=== PATIENT | female | born 1980 | race Caucasian/White ===

== ENCOUNTER 2017-02-09 19:55 | Emergency (ER) | payer MEDICARE, MEDICAID ==
[2017-02-09 20:34] VITALS: BP 127/75
[2017-02-09] MEDS ORDERED: Albuterol 2.5 MG/3 ML NEB.SOL* (0.083%) INH ONE (20:45)
[2017-02-09] MEDS ORDERED: Ipratropium 0.5MG/2.5ML NEB* 0.5 MG/2.5 ML NEB.SOLN INH ONE (20:45)
[2017-02-09] MEDS ORDERED: methylPREDNISolone 125 MG* 2 ML VIAL IM ONE (21:22)
--- NOTE | 2017-02-09 21:23 | UC ---
Respiratory Complaint HPI - History of Current Complaint Chief Complaint: UCRespiratory Stated Complaint: UPPER RESPIRATORY,COUGH Time Seen by Provider: 02/09/17 20:39 Hx Obtained From: Patient Hx Last Menstrual Period: 01/18/17 ?: No Onset/Duration: Gradual Onset, Lasting Days - 10, Worse Since - last several days with coughing fits. Timing: Constant Severity Initially: Mild Severity Currently: Severe Character: Cough: Nonproductive Aggravating Factors: Deep Breaths, Recumbent Position Associated Signs And Symptoms: Positive: Pleuritic Chest Pain - and right sided upper abdominal pain with coughing., Wheezing Related History: Seasonal Allergies - Risk Factors Pulmonary Embolism Risk Factors: Smoking Cardiac Risk Factors: Smoking - Allergies/Home Medications Allergies/Adverse Reactions: Allergies Allergy/AdvReac Type Severity Reaction Status Date / Time No Known Allergies Allergy Verified 02/09/17 20:24 Home Medications: Home Medications Cinnamon [Cinnamon Extract] 1,000 mg PO DAILY 02/09/17 [History Confirmed ] Exenatide(NF) [Byetta (NF)] 5 mcg SC BID 02/09/17 [History Confirmed 02/09/17] Levonorgestrel (Iud) [Mirena IUD] 20 mcg IU SEE INSTRUCTIONS 02/09/17 [History Confirmed 02/09/17] guaiFENesin ER TAB [Mucinex*] 600 mg PO BID PRN 02/09/17 [History Confirmed 09/27] PMH/Surg Hx/FS Hx/Imm Hx Endocrine History: Diabetes Cardiovascular History: Hypertension - Surgical History Surgical History: Yes Surgery Procedure, Year, and Place: C SECTION, TONSILLECTOMY, LEEP PROCEDUE, GALL BLADDER REMOVAL, hysteroscopy w/ bx - Family History Known Family History: Positive: Hypertension, Diabetes - Social History Occupation: Disabled Lives: With Family Alcohol Use: None Substance Use Type: None Smoking Status (MU): Heavy Every Day Tobacco Smoker Type: Cigarettes Amount Used/How Often: 1 PPD Length of Time of Smoking/Using Tobacco: started at age 14 Have You Smoked in the Last Year: Yes Household Exposure Type: Cigarettes Cessation Counseling: Patient Advised to Stop Review of Systems Respiratory: Shortness Of Breath, Cough Musculoskeletal: Myalgia - abdominal muscle wall pain with coughing, All Other Systems Reviewed And Are Negative: Yes Physical Exam Triage Information Reviewed: Yes Appearance: No Pain Distress, Ill-Appearing, Obese - morbidly Vital Signs: Initial Vital Signs Temp 99.0 F 02/09/17 20:27 Pulse 102 02/09/17 20:27 Resp 20 02/09/17 20:27 BP 127/75 02/09/17 20:27 Pulse Ox 98 02/09/17 20:27 Vital Signs Reviewed: Yes Eyes: Positive: Conjunctiva Clear ENT: Positive: Pharyngeal erythema - on the uvula, TMs normal Neck exam: Normal Respiratory: Positive: Lungs clear, Wheezing - just with coughing. Cardiovascular: Positive: RRR, No Murmur Musculoskeletal Exam: Normal Neurological Exam: Normal Psychological Exam: Normal Skin Exam: Normal UC Diagnostic Evaluation - Laboratory O2 Sat by Pulse Oximetry: 98 Respiratory Course/Dx - Differential Dx/Diagnosis Differential Diagnosis/HQI/PQRI: Asthma, Lower Resp Infection, Sinusitis Provider Diagnoses: Acute URI. Acute bronchospasm. Nicotine use, cigarettes Discharge - Discharge Plan Condition: Stable Disposition: HOME Prescriptions: predniSONE TAB* [Deltasone TAB*] 20 mg PO DAILY #18 tab Patient Education Materials: Upper Respiratory Infection (ED), Bronchospasm (ED ), Prednisone (By mouth), How to Use a Metered-Dose Inhaler and a Spacer (ED) Additional Instructions: Prednisone will make your sugars go up. Smoking Cessation Tricks. 1. Cut down by 1 cigarette per day every 2-3 days. Write the number of smokes for that day on the calendar. 2. Identify triggers to smoking: after meals, on the phone, in the car, with coffee, on breaks at work, etc. 3. Formulate a plan with a behavior to replace the smoking. Fireballs in the car , doodle pad on the phone, flavored creamer for the coffee, go for a walk after a meal or on break at work. 4. For stress smokes do deep breathing relaxation. Breath deep in through the nose hold the breath in for a few seconds then breath out slowly through the mouth.
[2017-02-09] MEDS ORDERED: predniSONE TAB* 20 MG PO ONE (21:32)
[2017-02-09] MEDS ORDERED: Albuterol HFA INHALER* 8 gm MDI INH ONE (21:38)
[2017-02-09] MEDS ORDERED: Cyclobenzaprine TAB* 10 MG PO ONE (21:43)
== END 2017-02-09 21:57 | disposition home or self-care (01) ==
LOC: UCCORT 19:55
DX: J06.9 Acute upper respiratory infection, unspecified (principal); E11.9 Type 2 diabetes mellitus without complications; I10 Essential (primary) hypertension; F17.210 Nicotine dependence, cigarettes, uncomplicated; J98.01 Acute bronchospasm
CPT/HCPCS: 99213; A9270-GY; G0463; J2930; J7512; J7644

== ENCOUNTER 2019-05-01 14:56 | Emergency (ER) | payer MEDICARE, MEDICAID ==
[2019-05-01 15:16] VITALS: BP 136/81
--- NOTE | 2019-05-01 15:38 | UC ---
Bite Injury/Animal HPI - HPI Summary HPI Summary: Pt was bit by a kitten 2 days ago on her right 4th finger. The area is swollen, painful, and draining. - History of Current Complaint Chief Complaint: UCBiteInjury Stated Complaint: CAT BITE Time Seen by Provider: 05/01/19 15:04 Hx Obtained From: Patient Hx Last Menstrual Period: 04/29/19 ?: No Severity Currently: Mild Severity Initially: Moderate Pain Intensity: 3 Onset/Duration: Sudden Onset, Lasting Days Type of Bite: Pet Has Animal Been Immunized?: Yes Character: Puncture Animal Available for Observation: Yes Animal Control Notified: No - Risk Factors Infection/Sepsis Risk Factors: Immunocompromised Patient - diabetes - Allergies/Home Medications Allergies/Adverse Reactions: Allergies Allergy/AdvReac Type Severity Reaction Status Date / Time metformin Allergy Nausea And Verified 05/01/19 15:17 Vomiting Home Medications: Home Medications Escitalopram Oxalate [Lexapro] 20 mg PO DAILY 05/01/19 [History Confirmed ] Liraglutide (NF) [Victoza (NF)] 0.6 mg SUBCUT DAILY 05/01/19 [History Confirmed 05/01/19] Sitagliptin Phosphate [Januvia] 25 mg PO DAILY 05/01/19 [History Confirmed 05/01] buPROPion HCl [Wellbutrin Sr] 450 mg PO DAILY 05/01/19 [History Confirmed ] glipiZIDE [Glipizide ER] 5 mg PO DAILY 05/01/19 [History Confirmed 05/01/19] PMH/Surg Hx/FS Hx/Imm Hx Previously Healthy: Yes - Surgical History Surgical History: Yes Surgery Procedure, Year, and Place: C SECTION, TONSILLECTOMY, LEEP PROCEDUE, GALL BLADDER REMOVAL, hysteroscopy w/ bx - Family History Known Family History: Positive: Hypertension, Diabetes - Social History Alcohol Use: None Substance Use Type: None Smoking Status (MU): Heavy Every Day Tobacco Smoker Type: Cigarettes Amount Used/How Often: 1 PPD Length of Time of Smoking/Using Tobacco: started at age 14 Have You Smoked in the Last Year: Yes Household Exposure Type: Cigarettes Review of Systems All Other Systems Reviewed And Are Negative: Yes Skin: Positive: Other - redness Musculoskeletal: Positive: Arthralgia, Edema, Myalgia Is Patient Immunocompromised?: No Physical Exam Triage Information Reviewed: Yes Appearance: Well-Appearing, Pain Distress, Obese Vital Signs: Initial Vital Signs Temp 98.2 F 05/01/19 15:12 Pulse 116 05/01/19 15:12 Resp 16 05/01/19 15:12 BP 136/81 05/01/19 15:12 Pulse Ox 98 05/01/19 15:12 Vital Signs Reviewed: Yes Eye Exam: Normal ENT Exam: Normal Dental Exam: Normal Neck exam: Normal Respiratory Exam: Normal Respiratory: Positive: Chest non-tender, Lungs clear, Normal breath sounds Cardiovascular Exam: Normal Cardiovascular: Positive: No Murmur, Pulses Normal, Tachycardia Abdominal Exam: Normal Bowel Sounds: Positive: Present Musculoskeletal: Positive: Strength Intact, ROM Limited @ - jihan to swelling, Edema @ - of the 4th right finger Neurological Exam: Normal Psychological Exam: Normal Skin: Positive: Other - erythema and small pusutle on posterior finger Bite Injury Course/Dx - Course Course Of Treatment: hx obtained, exam performed ,meds reviewed, treated for infection and advised to go to ER if not improving. - Differential Dx/Diagnosis Differential Diagnosis/HQI/PQRI: Cellulitis, Joint Space Infection, Superficial Infection Provider Diagnosis: Animal bite of finger, Cellulitis Discharge ED - Sign-Out/Discharge Documenting (check all that apply): Patient Departure All imaging exams completed and their final reports reviewed: No Studies - Discharge Plan Condition: Stable Disposition: HOME Prescriptions: Amoxicillin/Clavulanate TAB* [Augmentin TAB 875*] 875 mg PO BID #14 tab Patient Education Materials: Animal Bite (ED) Referrals: Jaci Thao MD [Primary Care Provider] - Additional Instructions: 1. warm soaks 2-3 times a day 2. Take the antibiotic - GET TWO DOSES IN TODAY AND THEN CONTINUE EVERY 24 HOURS 3. follow up in ER if redness increases up the hand, you develop fever or increased swelling - Billing Disposition and Condition Condition: STABLE Disposition: Home
== END 2019-05-01 15:38 | disposition home or self-care (01) ==
LOC: UCCORT 14:56
DX: S61.254A Open bite of right ring finger without damage to nail, initial encounter (principal); W55.01XA Bitten by cat, initial encounter; Y92.9 Unspecified place or not applicable; F17.210 Nicotine dependence, cigarettes, uncomplicated
CPT/HCPCS: 99212; G0463